=== PATIENT | female | born 1965 | race Caucasian/White ===

== ENCOUNTER 2018-08-19 11:42 | Emergency (ER) | payer OTHER ==
--- OUTSIDE RECORDS SUMMARY | 2018-08-19 11:45 | XMS REPORT | Clinical Summary ---
:1965 Author Organization [facility] Address [address] [place] [address] Care Team Providers Name Role Phone Kinza Andrews MD Primary Care Provider Allergies Active Allergy Reactions Severity Noted Date Comments Cephalexin 01/09/2018 Methocarbamol 01/09/2018 Current Medications Not on file Active Problems Not on file Encounters Date Type Specialty Care Team Description 01/09/2018 Office Visit Neurosurgery Luis Salcido MD Neck pain ( Primary Dx) after 08/18/2017 Social History Tobacco Use Types Packs/Day Years Used Date Current Every Day Smoker Smokeless Tobacco: Current User Alcohol Use Drinks/Week oz/Week Comments Yes Sex Assigned at Date Recorded Not on file Last Filed Vital Signs Vital Sign Reading Time Taken Blood Pressure - - Pulse - - Temperature - - Respiratory Rate - - Oxygen Saturation - - Inhaled Oxygen Concentration - - Weight 81.6 kg (180 lb) 01/09/2018 11:14 AM CDT Height 170.2 cm (5' 7") 01/09/2018 11:14 AM CDT Body Mass Index 28.19 01/09/2018 11:14 AM CDT Plan of Treatment Health Maintenance Due Date Last Done Comments CERVICAL CANCER SCREENING 1988 BREAST CANCER SCREENING 2017 COLON CANCER SCREENING 2017 SHINGRIX VACCINE (#1) 2017 INFLUENZA VACCINE 05/21/2018 Results Not on fileafter 08/18/2017 Insurance Payer Benefit Plan / Group Subscriber ID Type Phone Address [facility] CHOICE/CHOICE + xxxxxxxxx HMO/PPO [phone] [place], [place] [phone]
[2018-08-19 12:55] LABS: Absolute Lymphocytes (CBC) 1.7 K/uL (0.7-4.9); Absolute Monocytes 0.3 K/uL (0.1-1.3); Absolute Neutrophil 3.3 K/uL (1.8-8.0); Basophils % 0.7 % (0-1.3); Eosinophils % 2.9 % (0-4.4); Lymphocytes % 31.1 % (15.3-44.8); MCH 30.6 pg (27.0-35.0); MCV 90.5 fL (80-100); MPV 7.8 fL (7.6-11.3); RBC Red Blood Cell Count 4.86 M/uL (3.86-4.86)
[2018-08-19 13:07] LABS: Albumin 3.9 g/dL (3.4-5.0); Bilirubin Direct 0.1 mg/dL (0-0.2); Bilirubin Total 0.5 mg/dL (0.2-1.0); Potassium 3.9 mmol/L (3.5-5.1); Protein, Total 7.7 g/dL (6.4-8.2)
[2018-08-19 13:43] LABS: Urine Blood 1+ (NEG); Urine Glucose NEGATIVE (NEG); Urine Protein NEGATIVE (NEG); Urine pH 5.5 (5.0-7.0)
[2018-08-19 13:47] LABS: Urine Bacteria <20 /HPF (<20); Urine Culture Reflex Order NOT NEEDED; Urine RBC NONE SEEN /HPF (NONE SEEN)
--- NOTE | 2018-08-19 14:36 | RAD REPORT ---
EXAM DESCRIPTION: CTAbdomen Pelvis W Contrast - 08/19/2018 2:21 pm CLINICAL HISTORY: Abdominal pain. lower abdomen pain COMPARISON: No comparisons TECHNIQUE: Biphasic CT imaging of the abdomen and pelvis was performed with 100 ml non-ionic IV cont rast. All CT scans are performed using dose optimization technique as appropriate and may include automated exposure control or mA/KV adjustment according to patient size. FINDINGS: The lung bases are clear. The liver, spleen, pancreas, adrenal glands and kidneys are within normal limits. No bowel obstruction, free air, free fluid or abscess. The appendix is normal. No evidence of signi ficant lymphadenopathy. No suspicious bony findings. IMPRESSION: No acute intra-abdominal or pelvic finding.
--- NOTE | 2018-08-19 14:59 | ER ---
Nurse's Notes [facility] Name: Xi Beckford Age: 52 yrs Sex: Female : 1965 Arrival Date: 08/19/2018 Time: 11:47 Bed 14 Private MD: Diagnosis: Lower abdominal pain, unspecified;Constipation Presentation: 08/19 11:55 Presenting complaint: Patient states: Reports constipation for 1.5 weeks, denies N/V. jl7 Transition of care: patient was not received from another setting of care. Onset of symptoms was August 09, 2018. Risk Assessment: Do you want to hurt yourself or someone else? Patient reports no desire to harm self or others. Initial Sepsis Screen: Does the patient meet any 2 criteria? No. Patient's initial sepsis screen is negative. Does the patient have a suspected source of infection? No. Patient's initial sepsis screen is negative. Care prior to arrival: None. 11:55 Method Of Arrival: Ambulatory jl7 11:55 Acuity: BASSAM 3 jl7 MDS NURSE: 11:58 LMP N/A - Post-menopause jl7 Historical: - Allergies: 11:58 Keflex; jl7 11:58 Robaxin; jl7 - Home Meds: 11:58 None [Active]; jl7 - PMHx: 11:58 None; jl7 - PSHx: 11:58 foot surgery; jl7 - Immunization history:: Adult Immunizations not up to date. - Social history:: Smoking status: Patient uses tobacco products, smokes one pack cigarettes per day. - Ebola Screening: : No symptoms or risks identified at this time. Screenin:32 Abuse screen: Denies threats or abuse. Nutritional screening: No deficits noted. tw2 Tuberculosis screening: No symptoms or risk factors identified. Fall Risk None identified. Assessment: 12:05 General: Appears in no apparent distress. Behavior is calm, cooperative, appropriate tw2 for age. Pain: Complains of pain in abdomen. Neuro: Level of Consciousness is awake, alert, obeys commands, Oriented to person, place, time, situation. Cardiovascular: Denies chest pain, shortness of breath, Heart tones S1 S2 Patient's skin is warm and dry. Respiratory: Airway is patent Respiratory effort is even, unlabored, Respiratory pattern is regular, symmetrical, Breath sounds are clear bilaterally. GI: Bowel sounds present X 4 quads. Abd is soft X 4 quads Reports lower abdominal pain, upper abdominal pain, constipation. GI: "I feel like my insides are gonna fall out". : No signs and/or symptoms were reported regarding the genitourinary system. EENT: No signs and/or symptoms were reported regarding the EENT system. Derm: No signs and/or symptoms reported regarding the dermatologic system. Musculoskeletal: Range of motion: intact in all extremities. 13:32 Reassessment: Patient appears in no apparent distress at this time. No changes from tw2 previously documented assessment. Patient and/or family updated on plan of care and expected duration. Pain level reassessed. Patient is alert, oriented x 3, equal unlabored respirations, skin warm/dry/pink. 14:30 Reassessment: Patient appears in no apparent distress at this time. No changes from tw2 previously documented assessment. Patient and/or family updated on plan of care and expected duration. Pain level reassessed. Patient is alert, oriented x 3, equal unlabored respirations, skin warm/dry/pink. 15:05 Reassessment: Patient appears in no apparent distress at this time. No changes from tw2 previously documented assessment. Patient and/or family updated on plan of care and expected duration. Pain level reassessed. Patient is alert, oriented x 3, equal unlabored respirations, skin warm/dry/pink. Vital Signs: 11:58 BP 145 / 89; Pulse 79; Resp 16 S; Temp 98.5(O); Pulse Ox 98% on R/A; Weight 86.18 kg 7 (R); Height 5 ft. 6 in. (167.64 cm) (R); Pain 6/10; 13:31 BP 138 / 81; Pulse 59; Resp 17; Pulse Ox 99% on R/A; tw2 14:52 BP 137 / 94; Pulse 69; Resp 17; Pulse Ox 98% on R/A; tw2 11:58 Body Mass Index 30.67 (86.18 kg, 167.64 cm) 7 ED Course: 11:47 Patient arrived in ED. as 11:57 Triage completed. jl7 11:58 Arm band placed on right wrist. 7 12:02 Stephanie Veliz RN is Primary Nurse. tw2 12:03 Bhavik Inman PA is PHCP. cp 12:03 Bhavik Muro MD is Attending Physician. cp 12:05 Placed in gown. Bed in low position. Call light in reach. Pulse ox on. NIBP on. Warm tw2 blanket given. 12:10 Inserted saline lock: 22 gauge in left antecubital area, using aseptic technique. Blood tw2 collected. Missed attempt(s): 20 gauge in right antecubital area. Bleeding controlled, band aid applied, catheter tip intact. 14:13 CT completed. Patient tolerated procedure well. Patient moved to CT via wheelchair. sj Patient moved back from CT. 14:22 CT Abd/Pelvis - W/Contrast: give oral contrast In Process Unspecified. EDMS 14:56 Humberto Stevens MD is Referral Physician. cp 14:56 Served as a disability program navigator during rectal exam. tw2 15:05 IV discontinued, intact, bleeding controlled, No redness/swelling at site. Pressure tw2 dressing applied. Administered Medications: No medications were administered Outcome: 14:58 Discharge ordered by MD. cp 15:04 Discharged to home ambulatory. tw2 15:04 Condition: stable 15:04 Discharge instructions given to patient, Instructed on discharge instructions, follow up and referral plans. medication usage, Demonstrated understanding of instructions, follow-up care, medications, Prescriptions given X 1. 15:05 Patient left the ED. tw2 Signatures: Dispatcher [employer] EDSC Minerva Saldana Amelia as Page, Corey, Stephanie Delatorre cp, RN RN tw2 Anupam Steven RN RN jl7
--- NOTE | 2018-08-19 14:59 | EDPHYS ---
Physician Documentation [facility] Name: Xi Beckford Age: 52 yrs Sex: Female : 1965 Arrival Date: 08/19/2018 Time: 11:47 Bed 14 Private MD: ED Physician Bhavik Muro HPI: 08/19 12:15 This 52 yrs old Female presents to ER via Ambulatory with complaints of cp Abdominal Pain. 12:15 The patient presents with abdominal pain in the lower abdomen. cp 12:15 Onset: The symptoms/episode began/occurred 1.5 week(s) ago. The symptoms do not cp radiate. Associated signs and symptoms: Pertinent positives: constipation, Pertinent negatives: anorexia, blood in stools, diarrhea, dysuria, fever, headache, vaginal discharge. The symptoms are described as waxing/waning. SWE[employer] P[employer]LED [employer]ER: 11:58 LMP N/A - Post-menopause jl7 Historical: - Allergies: 11:58 Keflex; jl7 11:58 Robaxin; jl7 - Home Meds: 11:58 None [Active]; jl7 - PMHx: 11:58 None; jl7 - PSHx: 11:58 foot surgery; jl7 - Immunization history:: Adult Immunizations not up to date. - Social history:: Smoking status: Patient uses tobacco products, smokes one pack cigarettes per day. - Ebola Screening: : No symptoms or risks identified at this time. ROS: 12:20 Constitutional: Negative for body aches, chills, fever, poor PO intake. cp 12:20 Eyes: Negative for injury, pain, redness, and discharge. cp 12:20 ENT: Negative for drainage from ear(s), ear pain, sore throat, difficulty swallowing, difficulty handling secretions. 12:20 Cardiovascular: Negative for chest pain, edema, palpitations. 12:20 Respiratory: Negative for cough, shortness of breath, wheezing. 12:20 Abdomen/GI: Positive for abdominal pain, constipation, of the right lower quadrant and left lower quadrant, Negative for vomiting, diarrhea. 12:20 Back: Negative for injury or acute deformity, pain with movement. 12:20 : Negative for urinary symptoms, vaginal bleeding, vaginal discharge. 12:20 Skin: Negative for cellulitis, rash. 12:20 Neuro: Negative for altered mental status, headache, weakness. 12:20 All other systems are negative. Exam: 12:28 Constitutional: The patient appears in no acute distress, alert, awake, non-toxic, well cp developed, well nourished. 12:28 Head/Face: Normocephalic, atraumatic. cp 12:28 Eyes: Periorbital structures: appear normal, Conjunctiva: normal, no exudate, no injection, Sclera: no appreciated abnormality, Lids and lashes: appear normal, bilaterally. 12:28 ENT: External ear(s): are unremarkable, Nose: is normal, Mouth: Lips: moist, Oral mucosa: pink and intact, moist, Posterior pharynx: is normal, airway is patent, no erythema, no exudate. 12:28 Neck: ROM/movement: is normal, is supple, without pain, no range of motions limitations, no nuchal rigidity. 12:28 Chest/axilla: Inspection: normal, Palpation: is normal, no crepitus, no tenderness. 12:28 Cardiovascular: Rate: normal, Rhythm: regular, Edema: is not appreciated, JVD: is not appreciated. 12:28 Respiratory: the patient does not display signs of respiratory distress, Respirations: normal, no use of accessory muscles, no retractions, no splinting, no tachypnea, labored breathing, is not present, Breath sounds: are clear throughout, no decreased breath sounds, no stridor, no wheezing. 12:28 Abdomen/GI: Inspection: abdomen appears normal, Bowel sounds: active, all quadrants, Palpation: soft, in all quadrants, mild abdominal tenderness, in the right lower quadrant and left lower quadrant, rebound tenderness, is not appreciated, involuntary guarding, is not appreciated. 12:28 Back: CVA tenderness, is absent. 12:28 Skin: cellulitis, is not appreciated, no rash present. 12:28 Neuro: Orientation: to person, place \T\ time. Mentation: lucid, able to follow commands, Cerebellar function: is grossly normal, Motor: moves all fours, strength is normal, Sensation: is normal. Vital Signs: 11:58 BP 145 / 89; Pulse 79; Resp 16 S; Temp 98.5(O); Pulse Ox 98% on R/A; Weight 86.18 kg jl7 (R); Height 5 ft. 6 in. (167.64 cm) (R); Pain 6/10; 13:31 BP 138 / 81; Pulse 59; Resp 17; Pulse Ox 99% on R/A; tw2 14:52 BP 137 / 94; Pulse 69; Resp 17; Pulse Ox 98% on R/A; tw2 11:58 Body Mass Index 30.67 (86.18 kg, 167.64 cm) jl7 MDM: 12:04 Patient medically screened. thania 13:00 Differential diagnosis: appendicitis, bowel obstruction, diverticulitis, non-specific cp abd pain, pancreatitis, Ureterolithiasis, urinary tract infection, constipation, fecal impaction. 14:57 Data reviewed: vital signs, nurses notes, lab test result(s), radiologic studies, CT cp scan. 14:57 Counseling: I had a detailed discussion with the patient and/or guardian regarding: the cp historical points, exam findings, and any diagnostic results supporting the discharge/admit diagnosis, lab results, radiology results, the need for outpatient follow up, a brand ambassador promotional model, to return to the emergency department if symptoms worsen or persist or if there are any questions or concerns that arise at home. Response to treatment: the patient's symptoms have mildly improved after treatment, and as a result, I will discharge patient. Special discussion: Based on the patient's Hx, exam, and Dx evaluation, there is no indication for emergent surgery or inpatient Tx. It is understood by the patient/guardian that if the Sx's persist or worsen they need to return immediately for re-evaluation. 14:57 ED course: VSS. Discussed results of CT abdomen/pelvis that returned negative for acute cp findings. Will discharge to home for continued monitoring and recommend f/u with GI. Can use OTC enema or laxatives. 08/19 12:12 Order name: Basic Metabolic Panel; Complete Time: 13:46 cp 08/19 13:46 Interpretation: Normal except: GFR 76. cp 08/19 12:12 Order name: CBC with Diff; Complete Time: 13:46 cp 08/19 13:46 Interpretation: Reviewed. cp 08/19 12:12 Order name: Creatinine for Radiology; Complete Time: 13:46 cp 08/19 12:12 Order name: Hepatic Function; Complete Time: 13:46 cp 08/19 14:44 Interpretation: Normal except: GLOB 3.8; A/G 1.0. cp 08/19 12:12 Order name: Lipase; Complete Time: 13:46 cp 08/19 12:12 Order name: Urine Microscopic Only; Complete Time: 14:44 cp 08/19 12:12 Order name: IV Saline Lock; Complete Time: 13:22 cp 08/19 12:12 Order name: Labs collected and sent; Complete Time: 13:22 cp 08/19 12:12 Order name: Urine Dipstick-Ancillary (obtain specimen); Complete Time: 12:31 cp 08/19 12:12 Order name: Urine Test (obtain specimen); Complete Time: 12:31 cp 08/19 12:12 Order name: CT Abd/Pelvis - W/Contrast: give oral contrast; Complete Time: 14:44 cp 08/19 13:15 Order name: Urine Dipstick--Ancillary (enter results); Complete Time: 13:46 bd 08/19 13:15 Order name: Urine --Ancillary (enter results); Complete Time: 13:46 bd Administered Medications: No medications were administered Disposition: 08/19/18 14:58 Discharged to Home. Impression: Lower abdominal pain, unspecified, Constipation. - Condition is Stable. - Discharge Instructions: Abdominal Pain, Adult, Constipation, Adult. - Prescriptions for Miralax 17 gram/dose Oral - take 1 packet by ORAL route once daily for 15 days dilute powder in 8 ounces of water or juice; 15 packet. - Medication Reconciliation Form, Thank You Letter, Antibiotic Education, Prescription Opioid Use, Work release form form. - Follow up: Humberto Stevens MD; When: 2 - 3 days; Reason: Recheck today's complaints. - Problem is new. - Symptoms are unchanged. Signatures: Dispatcher [employer] EDLA Bhavik Muro MD MD cha Page, Corey, PA PA cp Stephanie Veliz, RN RN tw2 Anupam Steven RN RN jl7 Corrections: (The following items were deleted from the chart) 15:05 14:58 08/19/2018 14:58 Discharged to Home. Impression: Lower abdominal pain, tw2 unspecified; Constipation. Condition is Stable. Forms are Work release form, Medication Reconciliation Form, Thank You Letter, Antibiotic Education, Prescription Opioid Use. Follow up: Humberto Stevens; When: 2 - 3 days; Reason: Recheck today's complaints. Problem is new. Symptoms are unchanged. cp
[2018-08-19 15:10] VITALS: TEMP 98.5
[2018-08-19 15:12] VITALS: BP 137/94; O2SAT 98
== END 2018-08-19 15:05 | disposition home or self-care (01) ==
LOC: ER 11:42
DX: K59.00 Constipation, unspecified (principal); F17.210 Nicotine dependence, cigarettes, uncomplicated; Z88.1 Allergy status to other antibiotic agents; Z88.8 Allergy status to other drugs, medicaments and biological substances
CPT/HCPCS: 36415; 74177; 80048; 80076; 81003; 81015; 81025; 83690; 85025; 99284; Q9967

== ENCOUNTER 2022-04-06 08:39 | Emergency (ER) | payer OTHER, SELFPAY ==
--- OUTSIDE RECORDS SUMMARY | 2022-04-06 08:44 | XMS REPORT | Continuity of Care Document ---
:1965 Author Organization [facility] t Address [address] [place] [address] Care Team Providers Name Role Phone Pcp, Does Not Have A Primary Care Physician Delroy HUNTER Attending Clinician Joellen HUNTER Attending Clinician Singer ALCANTAR Attending Clinician PLACIDO Attending Clinician Unavailable Joellen HUNTER Admitting Clinician Problems Condition Condition Condition Status Onset Resolution Last Treating Co mments Source Name Details Category Date Date Treatment Clinician Date Obesity Obesity Disease Active Univers (BMI (BMI 9-15 ity of 30-39.9) 30-39.9) 00:00: [address] Other Other Disease Active Univers hyperlipid hyperlipid 15 it y of emia emia 00:: [address] Cigarette Cigarette Disease Active Uni vers smoker smoker 15 ity of 00:: [address] Family Family Disease Active Univers history of history of 9-15 [place] CAD [place] [facility] Chest pain Chest pain Disease Active U nivers -14 ity of 00:: [address] Allergies, Adverse Reactions, Alerts Allergy Allergy Status Severity Reaction(s) Onset Inactive Treating Comm ents Source Name Type Date Date Clinician CEPHALEX DRUG Active ITCHING Univers IN INGREDI -14 ity of 00:: [place] 00 Medical Branch METHOCAR DRUG Active ITCHING Univers BAMOL INGREDI 4-14 ity of 00:00: [place] 00 Medical Branch Cephalex Propensi Active Itching Unive rs in ty to 4-14 ity of adverse 00:00: [place] reaction 00 Medical s Branch Methocar Propensi Active Itching Unive rs bamol ty to 4-14 ity of adverse 00:00: [place] reaction 00 Medical s [place] Social History Social Habit Start Date Stop Date Quantity Comments Source Exposure to Not sure [facility] SARS-CoV-2 [facility] (event) [place] Alcohol intake 2021-07-04 2021-07-04 Current drinker Unive rsity of 00:00:00 00:00:00 of alcohol [facility] (finding) [place] Tobacco use and 2020-06-13 2020-06-13 Never used Universit y of exposure 00:00:00 00:00:00 [facility] Sex Ass[birth year] At [birth year] Universit y of 00:00:00 00:00:00 [facility] Smoking Status Start Date Stop Date Source Current every day smoker 2020-06-13 00:00:00 Uni versity of [facility] Medications Ordered Filled Start Stop Current Ordering Indication Dosage Frequency Signature Comments Components Source Medication Medication Date Date Medication? Clinician (SIG) Name Name pantoprazol Yes 40mg 40 mg, Univ ers e 9-16 Oral, ity of (PROTONIX) 14:00: DAILY, [place] EC tablet 00 First dose Medi chris 40 mg on Varsha [place] 07/06/21 at 0900, Until Discontinu ed, Routine atorvastati Yes 40mg 40 mg, Univ ers n (LIPITOR) 9-16 Oral, QHS, it y of tablet 40 02:00: [place] 00 on Wed Medical 07/05/21 at Branch 2100, Until Discontinu ed, Routine pantoprazol Yes [id number] 40mg Take 1 Univers e 40 mg EC 9-16 tablet by ity of tablet 00:00: mouth [place] 00 daily. Medical Branch aspirin 81 Yes [id number] 81mg Take 1 U nivers mg chewable 9-16 tablet by ity of tablet 00:00: mouth [place] 00 daily. Medical Branch aspirin Yes 81mg 81 mg, Univers chewable 9-15 Oral, ity of tablet 81 14:00: DAILY, [place] mg 00 First dose Medical on Sat Branch 07/05/21 at 0900, Until Discontinu ed, Routine levoFLOXaci No 750mg 750 mg, U nivers n 07-0518 Oral, ity of (LEVAQUIN) 14:00: 13:59 DAILY, 3 [place] tablet 750 00 :00 doses, Medical mg First dose Branch on Sat07/05/21 at 0900, Last dose on Sat07/07/21 at 0900, JUANCARLOS
Re ason for Anti-Infec tive: Documented Infection< br>Documen sadia Infection Site: Respirator y
Durat ion of Therapy: 7 days nicotine Yes 1{patch 1 Patch, Un benito (NICODERM) 07-05 } Topical, ity o f 21 mg/24 hr 13:00: Administer [place] patch 1 00 over 24 Medical Patch Hours, Branch Q24H, First dose on Sat07/05/21 at 0800, Until Discontinu ed, Routine predniSONE No 20mg 20 mg, Univ ers (DELTASONE) 07-05 Oral, ity of tablet 20 02:00: 13:38 DAILY, 3 Kishore as mg 00 :33 doses, Medical First dose Branch on Sat07/04/21 at 2100, Last dose on Sat07/06/21 at 0900, Routine ondansetron Yes 4mg 4 mg, Slow Univers (ZOFRAN 07-05 IV Push, ity of (PF)) 01:50: Q6HPRN, [place] injection 4 09 Starting Medi chris mg on Sat Branch 07/04/21 at 2049, Until Discontinu ed, Routine, Nausea and Vomiting (N/V) morpHINE 2020- No 4mg 4 mg, Slow Un benito injection 4 07-0516 IV Push, ity of mg 01:50: 01:49 Q4HPRN, [place] 06 :06 Starting Medical on Sat Branch 07/04/21 at 2049, Until Sat07/05/21 at 2048, Routine, Pain (scale 7-10) HYDROcodone 2021-0 2021- No 1{tbl} 1 tablet, Univers -acetaminop 07-05 Oral, ity of hen (NORCO 01:50: 01:49 Q6HPRN, [place] as 5) 5-325 mg 04 :04 Starting Medi chris tablet 1 on [facility] tablet 07/04/21 at 2049, Until Varsha 07/06/21 at 2048, Routine, Pain (scale 4-6) acetaminoph 2020-0 Yes 650mg 650 mg, Un benito en 07-05 Oral, ity of (TYLENOL) 01:49: Q6HPRN, [place] tablet 650 50 Starting Medic al mg on [facility] Branch 07/04/21 at 2048, Until Discontinu ed, Routine, Pain (scale 1-3), Temp > 38.5 C dextrometho 2020-0 Yes 10mL 10 mL, [facility] ers rphan-guaif 07-05 Oral, ity of enesin 01:48: Q6HPRN, [place] (ROBITUSSIN 17 Starting Medi chris DM) 10-100 on [facility] mg/5 mL 07/04/21 at solution 10 2047, mL Until Discontinu ed, Routine, Cough ipratropium 2020-0 Yes 3mL 3 mL, [facility] rs -albuteroL 07-05 Inhalation ity of (DUONEB) 01:47: , Q6HPRN, [place] 0.5 mg-3 06 Starting Medical mg(2.5 mg on [facility] base)/3 mL 07/04/21 at nebulizer 2046, solution 3 Until mL Discontinu ed, Routine, Wheezing, Shortness of Breath levoFLOXaci 2020-0 Yes [id number] 750mg Take 1 Univers n 750 mg 9-15 tablet by ity of tablet 00:00: mouth [place] 00 every 24 Medical (- Branch ur) hours. atorvastati 0 Yes [id number] 40mg Take 1 Univers n 40 mg 9-15 tablet by ity of tablet 00:00: mouth at [place] 00 bedtime. Medical Branch diphenhydrA 0 202- No [id number] 25mg 25 mg, Univers MINE 06-30 09-10 Slow IV ity of (BENADRYL) 17:30: 16:58 Push, [place] injection 00 :00 ONCE, 1 Medical 25 mg dose, Fri Branch 06/30/21 at 1230, STAT metoclopram 2020- No [id number] 10mg 10 mg, Univers tripp HCl 06-30 Slow IV ity of (REGLAN) 17:30: 16:58 Push, [place] injection 00 :00 ONCE, 1 Medical 10 mg dose, Fri Branch 06/30/21 at 1230, JUANCARLOS levoFLOXaci Yes [id number] 750mg Take 1 Univers n 750 mg 9-10 tablet by ity of tablet 00:00: mouth [place] 00 every 24 Medical (twenty-fo Branch ur) hours. albuterol Yes [id number] 2{puff} Inhale 2 Univers 90 9-10 Puffs ity of mcg/actuati 00:00: every 4 [place] as on inhaler 00 (four) Medical hours as Branch needed for Wheezing or Shortness of Breath. methylPREDN Yes [id number] Take by Univers ISolone 06-30 mouth ity of (MEDROL, 00:00: SEE-INSTRU [place] as TAMMY,) 4 mg 00 CTIONS. Medica l tablets follow Branch package directions albuterol Yes [id number] 2{puff} Inhale 2 Univers 90 9-10 Puffs ity of mcg/actuati 00:00: every 4 [place] as on inhaler 00 (four) Medical hours as Branch needed for Wheezing or Shortness of Breath. levoFLOXaci 2020- No [id number] 750mg Take 1 Univers n 750 mg 06-30 tablet by ity o f tablet 00:00: 00:00 mouth [place] 00 :00 every 24 Medical (twenty-fo Branch ur) hours. methylPREDN 0 2020- No [id number] Take by Univers ISolone 06-30-15 mouth ity of (MEDROL, 00:00: 00:00 [place]INSTRU [place] TAMMY,) 4 mg 00 :00 CTIONS. Medica l tablets follow Branch package directions acetaminoph Yes [id number] 1{tbl} Take 1 Un benito en-codeine 8-24 tablet by ity of 300-30 mg 00:00: mouth [place] tablet 00 every 4 Medical (four) Branch hours as needed for Pain (scale 4-6). Indication s: acute pain naproxen 2020-0 Yes [id number] 500mg Take 1 U nivers (NAPROSYN) 8-24 tablet by ity of 500 mg 00:00: mouth 2 [place] tablet 00 (two) Medical times Branch daily with meals. sulfamethox 2020-0 Yes [id number] 1{tbl} Take 1 Univers azole-trime 8-24 tablet by ity of thoprim 00:00: mouth [place] 800-160 mg 00 every 12 Medic al per tablet (twelve) Branc h hours. acetaminoph 2020-0 Yes [id number] 1{tbl} Take 1 Un benito en-codeine 8-24 tablet by ity of 300-30 mg 00:00: mouth [place] tablet 00 every 4 Medical (four) Branch hours as needed for Pain (scale 4-6). Indication s: acute pain naproxen 2019-0 2020- No [id number] 500mg Take 1 Univers (NAPROSYN) 8-24 09-15 tablet by ity of 500 mg 00:00: 00:00 mouth 2 [place] tablet 00 :00 (two) Medical times Branch daily with meals. sulfamethox 2020-0 2020- No [id number] 1{tbl} Take 1 Univers azole-trime 8-24 09-15 tablet by it y of thoprim 00:00: 00:00 mouth [place] 800-160 mg 00 :00 every 12 Medic al per tablet (twelve) Branc h hours. cyclobenzap 2016-0 Yes 10mg Take 1 Univ ers rine 5-16 tablet by ity of (FLEXERIL) 00:00: [place] 10 mg 00 (three) Medical tablet times Branch daily as needed for Muscle Spasms (pain). cyclobenzap 2016-0 Yes 10mg Take 1 Univ ers rine 5-16 tablet by ity of (FLEXERIL) 00:00: mouth [place] 10 mg 00 (three) Medical tablet times Branch daily as needed for Muscle Spasms (pain). Vital Signs Vital Name Observation Time Observation Value Comments Source Systolic blood 2021-07-05 20:29:00 156 mm[Hg] Univer sity of pressure [facility] Diastolic blood 2021-07-05 20:29:00 97 [facility]Hg[facility] 2021-07-05 20:29:00 93 /min Universi ty [facility] [place] [facility] [place] Body temperature 2021-07-05 20:29:00 37.11 Akila [facility] [place] [facility] [place] [facility] [place] Respiratory rate 2021-07-05 20:29:00 18 /min [facility] Oxygen saturation in 2021-07-05 20:29:00 94 /min University of Arterial blood by [facility] Pulse oximetry Branch Body weight 2021-07-05 07:53:00 87.136 kg Universi ty [facility] [place] [facility] [place] BMI 2021-07-05 07:53:00 30.09 kg/m2 Universi ty [facility] Systolic blood 2021-06-30 17:00:00 151 mm[Hg] Univer sit of [facility] Diastolic blood 2021-06-30 17:00:00 87 mm[Hg] [facility] Heart rate 2021-06-30 17:00:00 73 /min Universi [facility] [place] Oxygen saturation in 2021-06-30 17:00:00 97 /min University of Arterial blood by [facility] Pulse oximetry Branch Respiratory rate 2021-06-30 15:58:00 18 /min [facility] Body temperature 2021-06-30 14:25:00 36.56 Akila [facility] Body weight 2021-06-30 14:25:00 88.451 kg Universi [facility] BMI 2021-06-30 14:25:00 30.54 kg/m2 [facility] Procedures Procedure Date / Time Performing Clinician Source Performed TROPONIN I 2021-07-05 11:22:00 Billy Cuenca [facility] TROPONIN I 2021-07-05 08:05:00 Billy [facility] LIPID PANEL ([id number])(TOTAL 2021-07-05 08:05:00 [facility], Medical Branch TRIGLYCERIDES, HDL) XR CHEST 1 VW 2021-07-05 00:32:04 Gerardo Potts [facility] [place] COVID-19 (ID NOW RAPID 2021-07-05 00:32:00 Gerardo Potts [facility] TESTING) Medical [place] LAB ONLY COVID 2021-07-05 00:32:00 Delroy [facility] INTERPRETATION Medical Branch LIPASE 2021-07-05 00:03:00 [facility] 2021-07-05 00:03:00 [facility] 2021-07-05 00:03[facility] Branch COMP. METABOLIC PANEL 2021-07-05 00:03:00 Gerardo Potts [facility] ([id number]) [facility] CBC WITH DIFF 2021-07-05 00:03:00 Delroy [facility] GLYCOSYLATED HEMOGLOBIN 2021-07-05 00:03:00 [facility] PROTHROMBIN TIME / INR 2021-07-05 00:03:00 Gerardo Potts [facility] ACTIVATED PARTIAL 2021-07-05 00:03:00 Delroy [facility] THRMPLAS ADDIE [facility] HB ECG ROUTINE & RHYTHM 2021-07-05 00:00:45 Gerardo Potts [facility] STRIP [facility] Branch NOTICE OF PRIVACY 2021-07-04 23:42:08 Doctor Unassigned, [facility] [place] [facility] XR CHEST 1 VW 2021-06-30 15:55:24 Singer [facility] COMP. METABOLIC PANEL 2021-06-30 15:51:00 Carlos Yanez [facility] ([id number]) [facility] CBC WITH DIFF 2021-06-30 15:51:00 Carlos Yanez [facility] URINALYSIS 2021-06-30 15:51:00 Singer [facility] EBV-MONONUCLEOSIS SCREEN 2021-06-30 15:51:00 Carlos Yanez [facility] COVID-19 (ID NOW RAPID 2021-06-30 14:39:00 [facility] Medical Branch NOTICE OF PRIVACY 2021-06-30 14:19:25 Doctor Unassigned, [facility] PRACTICES [place] Medical Branch CONSENT/REFUSAL FOR 2021-06-30 14:16:14 Doctor Unassigned, [facility] DIAGNOSIS AND TREATMENT [place] [facility] Encounters Start End Encounter Admission Attending Care Care Encounter Source Date/Time Date/Time Type Type Clinicians Facility Department ID 2021-08-21 Emergency [facility] [id number] Univers 22:38:11 ity of [facility] 2021-08-21 Emergency [facility] [id number] Univers 21:44:15 ity of [facility] 2021-08-18 Emergency [facility] [id number] Univers 14:12:23 ity of [facility] 2021-07-04 2021-07-05 [facility] Gerardo Potts [facility] [id number] Univers 18:59:00 16:39:00 Encounter Billy Cuenca [id number] ity of [place] [id number] [facility] [id number] [address] 2021-06-30 2021-06-30 [facility] [id number] Univers 09:26:00 12:20:00 Carlos Martin [id number] i ty of [place] [id number] [facility] [id number] [address] 2020-11-18 2020-11-18 Outpatient R [facility] [id number] Univers 13:00:00 13:00:00 [id number] jorge [facility] 2020-11-18 2020-11-18 [facility] [id number] Univers 13:00:00 13:00:00 TONY patel [facility] 2020-06-13 2020-06-13 [facility] [id number] Univers 13:20:00 13:20:00 TONY patel [facility] Results Test Description Test Time Test Comments Results Result Comments Source Troponin I 2021-07-05 13:23:43 Test Item Value Reference Range Interpretation Comme nts TROPONIN I (test code = 0.004 ng/mL See_Comment [Au tomated message] The [id number]) system which ge nerated this result tra nsmitted reference range : <=0.034. The reference r kathy was not used to int erpret this result as normal/abnormal . FREDIS (test code = FREDIS) Reference (Normal) Range (defined by the 99th percentile reference limit): <= 0.034 ng/mL Note: Cardiac troponin begins to rise 3-4 hours after the onset of ischemia. Repeat in 4-6 hours if the sample was drawn within 3-4 hours of the onset of the symptom and found normal. Diagnosis of myocardial injury is made with acute changes in cTn concentrations with at least one serial sample above the 99th percentile upper reference limit (URL), taken together with the patient's clinical presentation. Biotin has been reported to cause a negative bias, interpret results relative to patient's use of biotin. Lab Interpretation Normal (test code = 73045-0) [facility] [id number] 09:23:24 Test Item Value Reference Interpretation Comments Range TROPONIN I (test 0.002 ng/mL See_Comment [Automated code = 9205072123) message] The system which generated this result transmitted reference range : <=0.034. The reference range was not used to interpret this result as normal/abnormal . FREDIS (test code = Reference (Normal) FREDIS) Range (defined by the 99th percentile reference limit): <= 0.034 ng/mL Note: Cardiac troponin begins to rise 3-4 hours after the onset of ischemia. Repeat in 4-6 hours if the sample was drawn within 3-4 hours of the onset of the symptom and found normal. Diagnosis of myocardial injury is made with acute changes in cTn concentrations with at least one serial sample above the 99th percentile upper reference limit (URL), taken together with the patient's clinical presentation. Biotin has been reported to cause a negative bias, interpret results relative to patient's use of biotin. Lab Interpretation Normal (test code = 02158-5) [facility] (Total Cholesterol, Triglycerides, HDL)2021-07-05 09:12:06 Test Item Value Reference Range Interpretation Comments CHOL (test code = 263 mg/dL 120-200 H [id number]) HDL (test code = 43 mg/dL >50 L 4406908022) HDLC RATIO (test code = See_Comment H [Au tomated message] [id number]) The system [employer] generated this result transmit sadia reference range : <=4.5. The refe rence range was not u sed to interpret th is result as normal/abnormal . TRIG (test code = 81 mg/dL 30-170 3468865318) LDL CHOL (test code = 204 mg/dL See_Comment H [Auto mated message] 37925-6) The system [employer] generated this result transmit sadia reference range : <=160. The refe rence range was not u sed to interpret th is result as normal/abnormal . VLDL (test code = 16 mg/dL 5-60 9555988426) Lab Interpretation (test Abnormal code = 82592-1) [facility]en[facility]yroid Stimulating Hormone (TSH)2021-07-05 03:17:09 Test Item Value Reference Range Interpretation Comments TSH (test code = See_Comment [Automated message] [id number]) The system [employer] generated this result transmitted ref erence range: 0.45 - 4 .70 mIU/L. The refe rence range was not u sed to interpret this result as normal/abnor mal. Lab Interpretation (test Normal code = 65816-7) [facility]cosylated Hemoglobin (A1C)2021-07-05 02:22:55 Test Item Value Reference Range Interpretation Comments HGB A1C (test code = 5.2 % 4.0-5.7 4548-4) FREDIS (test code = FREDIS) Reference RangesNormal: <5.7%Prediabetes: 5.7 - 6.4%Diabetes: > 6.5% Lab Interpretation (test Normal code = 79943-0) [facility]enTROP[facility] [id number] 00:58:35 Test Item Value Reference Interpretation Comments Range TROPONIN I (test 0.003 ng/mL See_Comment [Automated code = 8576980234) message] The system which generated this result transmitted reference range : <=0.034. The reference range was not used to interpret this result as normal/abnormal . FREDIS (test code = Reference (Normal) FREDIS) Range (defined by the 99th percentile reference limit): <= 0.034 ng/mL Note: Cardiac troponin begins to rise 3-4 hours after the onset of ischemia. Repeat in 4-6 hours if the sample was drawn within 3-4 hours of the onset of the symptom and found normal. Diagnosis of myocardial injury is made with acute changes in cTn concentrations with at least one serial sample above the 99th percentile upper reference limit (URL), taken together with the patient's clinical presentation. Biotin has been reported to cause a negative bias, interpret results relative to patient's use of biotin. Lab Interpretation Normal (test code = 51650-1) [facility]. METABOLIC PANEL ([id number])2021-07-05 00:48:33 Test Item Value Reference Range Interpretation Comments NA (test code = 138 mmol/L 135-145 4682601187) K (test code = 4.1 mmol/L 3.5-5.0 4398519423) CL (test code = 103 mmol/L 98-108 2466525104) CO2 TOTAL (test code = 27 mmol/L 23-31 0482981787) AGAP (test code = 2-16 6501658747) BUN (test code = 22 mg/dL 7-23 0664655419) GLUCOSE (test code = 118 mg/dL 70-110 H 0313160700) CREATININE (test code = 0.84 mg/dL 0.50-1.04 4186479531) TOTAL BILI (test code = 0.4 mg/dL 0.1-1.9 5326135089) CALCIUM (test code = 10.0 mg/dL 8.6-10.6 6871823868) T PROTEIN (test code = 7.7 g/dL 6.3-8.2 0639218542) ALBUMIN (test code = 4.5 g/dL 3.5-5.0 4496459284) ALK PHOS (test code = 53 U/L 34-122 4413612501) ALTv (test code = 22 U/L 5-35 1742-6) AST(SGOT) (test code = 23 U/L 13-40 7161579248) eGFR (test code = mL/min/1.73m2 3343963830) FREDIS (test code = FREDIS) Association of Glomerular Filtration Rate (GFR) and Staging of Kidney Disease* + --+ --+ ------+| GFR (mL/min/1.73 m2) ?| With Kidney Damage ?| ?Without Kidney Damage+ --------+ --------+ +| ?>90 ?| ?Stage one ?| ? Normal ?+ ---+ ---+ -------+| ?60-89 ?| ?Stage two ?| ? Decreased GFR ? + --+ --+ ------+| ?30-59 ?| ?Stage three ?| ? Stage three ? + --+ --+ ------+| ?15-29 ?| ?Stage four ? | ? Stage four ?+ ---+ ---+ -------+| ?<15 (or dialysis) ? ?| ?Stage five ? | ? Stage five ?+ ---+ ---+ -------+ *Each stage assumes the associated GFR level has been in effect for at least three months. ?Stages 1 to 5, with or without kidney disease, indicate chronic kidney disease. Notes: Determination of stages one and two (with eGFR >59mL/min/1.73 m2) requires estimation of kidney damage for at least three months as defined by structural or functional abnormalities of the kidney, manifested by either:Pathological abnormalities or Markers of kidney damage (including abnormalities in the composition of the blood or urine or abnormalities in imaging tests). Lab Interpretation Abnormal (test code = 81470-5) [facility]enLIP[facility], [id number] 00:47:58 Test Item Value Reference Range Interpretation Comments LIPASE (test code = 9148876417) 66 U/L 0-220 Lab Interpretation (test code = Normal 77560-4) [facility]enaPTT2021-09-15 00:30:12 Test Item Value Reference Range Interpretation Comments APTT Patient (test See_Comment [Automat ed code = 3173-2) message] The system which generated this result transmitted reference range : 23 - 38 Seconds . The reference range was not used to interpr et this result as normal/abnormal . FREDIS (test code = FREDIS) The [facility] patient population mean normal value for aPTT is 30 seconds. Lab Interpretation Normal (test code = 12219-0) [facility]enPROTHROMBIN TIME / [id number] 00:28:16 Test Item Value Reference Range Interpretation Comments PROTIME PATIENT (test See_Comment [Auto mated message] code = 5964-2) The system wh ich generated this result transmitted ref erence range: 12.0 - 1 4.7 Seconds. The re ference range was not u sed to interpret this result as normal/abnor mal. INR (test code = 6301-6) Nor mal INR <1.1; Warfarin Therap eutic range 2.0 to 3. 0 or 2.5 to 3.5, dep ending upon the indica tions. Lab Interpretation (test Normal code = 61734-1) [facility] WITH [id number] 00:26:15 Test Item Value Reference Range Interpretation Comments WBC (test code = See_Comment [Automated 3890-2) message] The sy stem which generated this result transmitted reference range : 4.30 - 11.10 10*3/?L. The reference range was not used to interpret this result as normal/abnormal . RBC (test code = See_Comment [Automated 789-8) message] The sy stem which generated this result transmitted reference range : 3.93 - 5.25 10*6/?L. The reference range was not used to interpret this result as normal/abnormal . HGB (test code = 13.4 g/dL 11.6-15.0 718-7) HCT (test code = 40.6 % 35.7-45.2 4544-3) MCV (test code = 92.9 fL 80.6-95.5 787-2) MCH (test code = 30.7 pg 25.9-32.8 785-6) MCHC (test code = 33.0 g/dL 31.6-35.1 786-4) RDW-SD (test code = 41.6 fL 39.0-49.9 91705-0) RDW-CV (test code = 12.1 % 12.0-15.5 788-0) PLT (test code = See_Comment [Automated 777-3) message] The sy stem which generated this result transmitted reference range : 166 - 358 10*3/ ?L. The reference r kathy was not used to interpret this result as normal/abnormal . MPV (test code = 9.2 fL 9.5-12.9 L 16277-8) NRBC/100 WBC (test See_Comment [Automat ed code = 1199899841) message] The system which generated this result transmitted reference range : 0.0 - 10.0 /100 WBCs. The refer ence range was not u sed to interpret th is result as normal/abnormal . NRBC x10^3 (test code <0.01 See_Comment [Auto mated = 2406533067) message] The s ystem which generated this result transmitted reference range : 10*3/?L. The reference range was not used to interpret this result as normal/abnormal . GRAN MAT (NEUT) % 64.5 % (test code = 770-8) IMM GRAN % (test code 0.50 % = 3028689408) LYMPH % (test code = 25.9 % 736-9) MONO % (test code = 6.8 % 5905-5) EOS % (test code = 1.5 % 713-8) BASO % (test code = 0.8 % 706-2) GRAN MAT x10^3(ANC) 4.99 10*3/uL 1.88-7.09 (test code = 4035062155) IMM GRAN x10^3 (test 0.04 10*3/uL 0.00-0.06 code = 7354828995) LYMPH x10^3 (test code 2.01 10*3/uL 1.32-3.29 = 731-0) MONO x10^3 (test code 0.53 10*3/uL 0.33-0.92 = 742-7) EOS x10^3 (test code = 0.12 10*3/uL 0.03-0.39 711-2) BASO x10^3 (test code 0.06 10*3/uL 0.01-0.07 = 704-7) Lab Interpretation Abnormal (test code = 11032-5) [facility] [id number] 16:54:38 Test Item Value Reference Range Interpretation Comments EBV Mononucleosis Screen (test code Negative Negative = 4092746928) Lab Interpretation (test code = Normal 41364-0) [facility]OLIC PANEL ([id number])2021-06-30 16:16:44 Test Item Value Reference Range Interpretation Comments NA (test code = 140 mmol/L 135-145 9064011365) K (test code = 4.0 mmol/L 3.5-5.0 7913637791) CL (test code = 103 mmol/L 98-108 9420982484) CO2 TOTAL (test code = 28 mmol/L 23-31 6187405108) AGAP (test code = 2-16 8130876669) BUN (test code = 20 mg/dL 7-23 8867783994) GLUCOSE (test code = 99 mg/dL 70-110 4549993032) CREATININE (test code = 0.77 mg/dL 0.50-1.04 0047637032) TOTAL BILI (test code = 0.6 mg/dL 0.1-1.9 1169183135) CALCIUM (test code = 10.1 mg/dL 8.6-10.6 1689967439) T PROTEIN (test code = 8.7 g/dL 6.3-8.2 H 3826886448) ALBUMIN (test code = 5.1 g/dL 3.5-5.0 H 1347207011) ALK PHOS (test code = 71 U/L 34-122 0820324692) ALTv (test code = 18 U/L 5-35 1742-6) AST(SGOT) (test code = 24 U/L 13-40 4451295795) eGFR (test code = mL/min/1.73m2 0668851866) FREDIS (test code = FREDIS) Association of Glomerular Filtration Rate (GFR) and Staging of Kidney Disease* + --+ --+ ------+| GFR (mL/min/1.73 m2) ?| With Kidney Damage ?| ?Without Kidney Damage+ --------+ --------+ +| ?>90 ?| ?Stage one ?| ? Normal ?+ ---+ ---+ -------+| ?60-89 ?| ?Stage two ?| ? Decreased GFR ? + --+ --+ ------+| ?30-59 ?| ?Stage three ?| ? Stage three ? + --+ --+ ------+| ?15-29 ?| ?Stage four ? | ? Stage four ?+ ---+ ---+ -------+| ?<15 (or dialysis) ? ?| ?Stage five ? | ? Stage five ?+ ---+ ---+ -------+ *Each stage assumes the associated GFR level has been in effect for at least three months. ?Stages 1 to 5, with or without kidney disease, indicate chronic kidney disease. Notes: Determination of stages one and two (with eGFR >59mL/min/1.73 m2) requires estimation of kidney damage for at least three months as defined by structural or functional abnormalities of the kidney, manifested by either:Pathological abnormalities or Markers of kidney damage (including abnormalities in the composition of the blood or urine or abnormalities in imaging tests). Lab Interpretation Abnormal (test code = 16263-3) [facility] 16:10:28 Test Item Value Reference Range Interpretation Comments APPEARANCE (test code = Hazy Clear A 6146561751) COLOR (test code = Yellow Yellow 5428193863) PH (test code = 4.8-8.0 8708001638) SP GRAVITY (test code = 1.003-1.030 1901307849) GLU U QUAL (test code = Normal Normal 0216061623) BLOOD (test code = 2+ Negative A 4901866273) KETONES (test code = Negative Negative 0145420289) PROTEIN (test code = Negative Negative 2887-8) UROBILIN (test code = Normal Normal 7582246373) BILIRUBIN (test code = Negative Negative 6771579329) NITRITE (test code = Negative Negative 5362194500) LEUK JUANI (test code = Negative Negative 7917992296) RBC/HPF (test code = See_Comment H [Autom ated message] 4417784455) The system [employer] generated this result transmitted ref erence range: 0 - 3 HP F. The reference range was not used to int erpret this result as normal/abnormal . WBC/HPF (test code = See_Comment [Autom ated message] 3939451297) The system [employer] generated this result transmitted ref erence range: 0 - 5 HP F. The reference range was not used to int erpret this result as normal/abnormal . BACTERIA (test code = Few Negative A 7991345033) MUCOUS (test code = Slight Negative LPF A 6139039601) SQ EPITH (test code = HPF 6521210377) Lab Interpretation (test Abnormal code = 56064-2) [facility] 1 [id number] 16:08:03 No focal consolidation. Bibasilar opacities may represent atelectasis orinfection with viral/atypical organisms. Preliminary Report Dictated by Resident: Louis Crespo MD., have reviewed this study and agree with theabove report.EXAM: XR CHEST 1 VW HISTORY: 55 years-old Female; shortness of breath . "Body aches andheadache for 6 days" TECHNIQUE: Single frontal view of the chest. COMPARISON: Chest radiographs dated 08/21/2017. FINDINGS: The lung apices are not fully imaged. The lungs are moderately well expanded. Trace opacities are seen in thebases. No focal consolidation or pleural abnormality is visualized. ? The cardiomediastinal silhouette is normal accounting for technique. No acute osseous abnormality is present. [facility], Radiant Results Inft User - 06/30/2021 11:09 AM CDT EXAM: XR CHEST 1 VWHISTORY: 55 years-old Female; shortness of breath . "Body aches andheadache for 6 days"TECHNIQUE: Single frontal view of the chest.COMPARISON: Chest radiographs dated 08/21/2017.FINDINGS:The lung apices are not fully im aged.The lungs are moderately well expanded. Trace opacities are seen in thebases. No focal consolidation or pleural abnormality is visualized. The cardiomediastinal silhouette is normal accounting for technique.No acute osseous abnormality is present. IMPRESSIONNo focal consolidation. Bibasilar opacities may represent atelectasis orinfection with viral/atypical organisms. Preliminary Report Dictated by Resident: Louis Reinoso MD., have reviewed this study and agree with theabove report.[facility] WITH [id number] 16:03:25 Test Item Value Reference Range Interpretation Comments WBC (test code = See_Comment [Automated 5290-2) message] The sy stem which generated this result transmitted reference range : 4.30 - 11.10 10*3/?L. The reference range was not used to interpret this result as normal/abnormal . RBC (test code = See_Comment [Automated 339-8) message] The sy stem which generated this result transmitted reference range : 3.93 - 5.25 10*6/?L. The reference range was not used to interpret this result as normal/abnormal . HGB (test code = 15.3 g/dL 11.6-15.0 H 718-7) HCT (test code = 46.9 % 35.7-45.2 H 4544-3) MCV (test code = 94.7 fL 80.6-95.5 787-2) MCH (test code = 30.9 pg 25.9-32.8 785-6) MCHC (test code = 32.6 g/dL 31.6-35.1 786-4) RDW-SD (test code = 42.2 fL 39.0-49.9 17762-8) RDW-CV (test code = 12.1 % 12.0-15.5 788-0) PLT (test code = See_Comment [Automated 777-3) message] The sy stem which generated this result transmitted reference range : 166 - 358 10*3/ ?L. The reference r kathy was not used to interpret this result as normal/abnormal . MPV (test code = 8.9 fL 9.5-12.9 L 32883-5) NRBC/100 WBC (test See_Comment [Automat ed code = 0116681955) message] The system which generated this result transmitted reference range : 0.0 - 10.0 /100 WBCs. The refer ence range was not u sed to interpret th is result as normal/abnormal . NRBC x10^3 (test code <0.01 See_Comment [Auto mated = 4985071985) message] The s ystem which generated this result transmitted reference range : 10*3/?L. The reference range was not used to interpret this result as normal/abnormal . GRAN MAT (NEUT) % 67.5 % (test code = 770-8) IMM GRAN % (test code 0.30 % = 8672654716) LYMPH % (test code = 23.9 % 736-9) MONO % (test code = 6.4 % 5905-5) EOS % (test code = 1.1 % 713-8) BASO % (test code = 0.8 % 706-2) GRAN MAT x10^3(ANC) 4.43 10*3/uL 1.88-7.09 (test code = 0571911894) IMM GRAN x10^3 (test <0.03 0.00-0.06 code = 5965938751) LYMPH x10^3 (test code 1.57 10*3/uL 1.32-3.29 = 731-0) MONO x10^3 (test code 0.42 10*3/uL 0.33-0.92 = 742-7) EOS x10^3 (test code = 0.07 10*3/uL 0.03-0.39 711-2) BASO x10^3 (test code 0.05 10*3/uL 0.01-0.07 = 704-7) Lab Interpretation Abnormal (test code = 65727-6) [facility] (ID NOW RAPID TESTING)2021-06-30 15:21:17 Test Item Value Reference Range Interpretation Comments SARS-CoV-2 Rapid ID NOW Not Detected Not Detected (test code = 20606-9) FREDIS (test code = FREDIS) ID NOW COVID-19 Assay is an isothermal nucleic acid amplification test intended for the qualitative detection of nucleic acid from SARS-CoV-2 viral RNA in nasopharyngeal (NETWORK ADMINISTRATOR) specimens. It is used under Emergency Use Authorization (EUA) by FDA. The limit of detection (LOD) of the assay is 125 Genome Equivalents/mL. A positive result is indicative of the presence of SARS-CoV-2 RNA. ?Clinical correlation with patient history and other diagnostic information is necessary to determine patient infection status. A negative (Not Detected) result does not preclude SARS-CoV-2 infection. In patients with a high suspicion of SARS-CoV-2 infection, negative results should be treated as presumptive negative and a new specimen should be tested with alternative nucleic acid amplification molecular test. Invalid: Please collect a new specimen for repeat patient testing if clinically indicated. Lab Interpretation Normal (test code = 26981-2) [facility]
[2022-04-06 09:39] LABS: Urine Blood Trace-lysed (Negative); Urine Glucose Negative (Negative); Urine Protein Negative (Negative); Urine Specific Gravity 1.025 (1.005-1.030)
[2022-04-06] MEDS ORDERED: FAMOTIDINE 20 MG/2 ML VIAL IV ONE (09:53)
[2022-04-06] MEDS ORDERED: KETOROLAC 30 MG/ML INJ ONE (09:53)
[2022-04-06] MEDS ORDERED: NA CHLORIDE 0.9% 1,000 ML ONE (09:53)
[2022-04-06] MEDS ORDERED: METHYLPREDNISOLONE 125 MG INJ ONE (09:53)
[2022-04-06 09:55] LABS: Absolute Lymphocytes (CBC) 1.6 K/uL (0.7-4.9); Hematocrit 42.7 % (36.0-45.0); Lymphocytes % 22.7 % (15.3-44.8); RBC Red Blood Cell Count 4.68 M/uL (3.86-4.86)
[2022-04-06 10:02] LABS: Protime INR 0.99
--- NOTE | 2022-04-06 10:11 | RAD REPORT ---
EXAM DESCRIPTION: RAD - Chest Single View - 04/06/2022 9:47 am CLINICAL HISTORY: CONGESTIONswelling, edema COMPARISON: November 2013 TECHNIQUE: AP portable chest image was obtained 04/06/2022 9:47 am . FINDINGS: No focal mass or infiltrate. No pulmonary edema pattern identified. Heart and vasculature are normal. No measurable pleural effusion and no pneumothorax. No acute bony abnormality seen. No ac [place] aortic findings suspected. IMPRESSION: No acute cardiopulmonary process.
[2022-04-06 10:22] LABS: ALT/SGPT 17 U/L (12-78); AST/SGOT 10 U/L (15-37); Albumin 3.7 g/dL (3.4-5.0); Alkaline Phosphatase 69 U/L (45-117); Amylase 49 U/L (25-115); BUN Blood Urea Nitrogen 17 mg/dL (7-18); Bicarbonate 26 mmol/L (21-32); Bilirubin Total 0.4 mg/dL (0.2-1.0); Glomerular Filtration Rate 84 ml/min (=/>90); Glucose Level 92 mg/dL (74-106); Lipase 66 U/L (73-393); Magnesium 2.1 mg/dL (1.8-2.4); Potassium 3.8 mmol/L (3.5-5.1); Protein, Total 7.2 g/dL (6.4-8.2); Sodium Level 139 mmol/L (136-145)
[2022-04-06 10:41] LABS: Bilirubin Direct < 0.1 mg/dL (0-0.2); CKMB Creatine Kinase MB < 1.0 ng/mL (1.0-3.6)
--- NOTE | 2022-04-06 11:20 | RAD REPORT ---
EXAM DESCRIPTION: CT - Head Brain Wo Cont - 04/06/2022 11:00 am CLINICAL HISTORY: Delirium, right-sided facial swelling, blurred vision COMPARISON: No comparisons TECHNIQUE: Axial 5 mm thick images of the head were obtained without IV contrast. All CT scans are performed using dose optimization technique as appropriate and may include automated exposure control or mA/KV adjustment according to patient size. FINDINGS: No intracranial hemorrhage, mass, edema or shift of mid-line structures. No acute infarcti on changes seen. No abnormal extra-axial fluid collections. Ventricles are normal. Mastoid air cells and visualized portions of the paranasal sinuses are clear. No acute bony findings. IMPRESSION: Negative non-contrast CT head examination.
--- NOTE | 2022-04-06 11:24 | RAD REPORT ---
EXAM DESCRIPTION: CT - Maxillofacial W/Cont - 04/06/2022 11:01 am CLINICAL HISTORY: Right-sided facial swelling, pain COMPARISON: None. TECHNIQUE: Axial 2 millimeter thick images of the facial bones were obtained following nonionic IV c ontrast administration with sagittal and coronal reconstruction imaging. All CT scans are performed using dose optimization technique as appropriate and may include automated exposure control or mA/KV adjustment according to patient size. FINDINGS: Limited intracranial portion the examination was unremarkable. No globe or orbital content abnormality seen. Mastoid air cells are clear. Trace mucosal thickening in the maxillary sinuses. No acute paranasal sinus finding. No pharyngeal mucosal mass or asymmetry. No tonsillar or tongue base abnormality seen. Soft palate is unremarkable. Epiglottis and vocal cords also without suspicious finding. The parotid, submandibular and thyroid gland tissues show no mass, edema or other significant finding . The thyroid gland was not fully imaged on this facial CT study. No vascular abnormality. No asymmetric or abnormally enhancing tissues identifiable. Right-sided facial soft tissue show no abnormal edema or soft tissue asymmetry. No air or foreign bod y in the soft tissues. No acute or destructive bone process identifiable. IMPRESSION: Contrast-enhanced CT study of the facial soft tissues shows no identifiable abnormality.
--- NOTE | 2022-04-06 12:49 | ER ---
Nurse's Notes [facility] Name: Xi Beckford Age: 56 yrs Sex: Female : 1965 Arrival Date: 04/06/2022 Time: 08:41 Bed 16 Private MD: Humberto Harley E Diagnosis: Allergy status to unspecified drugs, medicaments and biological substances status Presentation: 04/06 08:44 Chief complaint: Patient states: woke up in middle of night and the right side of her iw face is swollen and her heart is racing and she is having blurred vision and doesn't feel right . started cipro for a UTI and her doctor told her she may be having a reaction to that. Coronavirus screen: At this time, the client does not indicate any symptoms associated with coronavirus-19. Ebola Screen: Patient negative for fever greater than or equal to 101.5 degrees Fahrenheit, and additional compatible Ebola Virus Disease symptoms Patient denies exposure to infectious person. Patient denies travel to an Ebola-affected area in the 21 days before illness onset. No symptoms or risks identified at this time. Onset of symptoms was April 06, 2022. 08:44 Method Of Arrival: Ambulatory iw 08:44 Acuity: BASSAM 3 iw 08:46 Risk Assessment: Do you want to hurt yourself or someone else? Patient reports no iw desire to harm self or others. 08:51 Initial Sepsis Screen: Does the patient meet any 2 criteria? No. Patient's initial ph sepsis screen is negative. Does the patient have a suspected source of infection? No. Patient's initial sepsis screen is negative. 09:59 Onset: The symptoms/episode began/occurred this morning. Anaphylaxis evaluation, no ph signs or symptoms of anaphylaxis were noted. Historical: - Allergies: 08:46 Keflex; iw 08:46 Robaxin; iw - Immunization history:: Adult Immunizations up to date. - Social history:: Patient/guardian denies using alcohol, street drugs, The patient lives with family, Smoking status: Patient reports the use of cigarette tobacco products, smokes one-half pack cigarettes per day. - Family history:: not pertinent. Screenin:50 Abuse screen: Denies threats or abuse. Denies injuries from another. Nutritional ph screening: No deficits noted. Tuberculosis screening: No symptoms or risk factors identified. Fall Risk None identified. Assessment: 09:00 General: Appears in no apparent distress. uncomfortable, Behavior is calm, cooperative, ph appropriate for age. Pain: Complains of pain in right temporal area, right yazidism, right zygomatic area and right cheek Pain radiates to right clavicle and anterior aspect of right upper chest. Neuro: Level of Consciousness is awake, alert, obeys commands, Oriented to person, place, time, situation, Reports headache. 10:02 Cardiovascular: Capillary refill < 3 seconds in bilateral fingers Patient's skin is ph warm and dry. Respiratory: Airway is patent Respiratory effort is even, unlabored, Breath sounds are clear bilaterally. GI: No signs and/or symptoms were reported involving the gastrointestinal system. EENT: swelling and open wound noted to R lower gum area, pt reports having molars pulled many years ago. Derm: Skin is intact, Skin is pink, warm \T\ dry. Musculoskeletal: Circulation, motion, and sensation intact. Range of motion: intact in all extremities. 11:00 Reassessment: Patient appears in no apparent distress at this time. Patient and/or ph family updated on plan of care and expected duration. Pain level reassessed. Patient is alert, oriented x 3, equal unlabored respirations, skin warm/dry/pink. 12:00 Reassessment: Patient appears in no apparent distress at this time. Patient and/or ph family updated on plan of care and expected duration. Pain level reassessed. Patient is alert, oriented x 3, equal unlabored respirations, skin warm/dry/pink. 13:07 Reassessment: Patient appears in no apparent distress at this time. Patient and/or ph family updated on plan of care and expected duration. Pain level reassessed. Patient is alert, oriented x 3, equal unlabored respirations, skin warm/dry/pink. Patient states feeling better. Patient states symptoms have improved. Vital Signs: 08:44 BP 167 / 93; Pulse 80; Resp 16; Temp 97.6; Pulse Ox 100% on R/A; iw 09:20 BP 141 / 79; Pulse 77; Resp 18; Pulse Ox 96% on R/A; ph 10:09 BP 149 / 77; Pulse 65; Resp 18; Pulse Ox 99% on R/A; ph 11:00 BP 139 / 78; Pulse 69; Resp 18; Pulse Ox 99% on R/A; ph 12:00 BP 151 / 78; Pulse 76; Resp 18; Pulse Ox 98% on R/A; ph 13:00 BP 146 / 86; Pulse 72; Resp 18; Temp 98.0; Pulse Ox 99% on R/A; ph ED Course: 08:41 Patient arrived in ED. rg4 08:42 Humberto Harley MD is Private Physician. rg4 08:46 Triage completed. iw 08:46 Arm band placed on. iw 08:49 Arpita Lee, ANN MARIE is Primary Nurse. ph 08:50 Patient has correct armband on for positive identification. Bed in low position. Call ph light in reach. Side rails up X 1. Pulse ox on. NIBP on. 08:57 Loni Hamm MD is Attending Physician. ma2 09:40 Inserted saline lock: 20 gauge in left forearm, using aseptic technique. Blood mb7 collected. 09:43 Amylase, Serum Sent. mb7 09:43 Basic Metabolic Panel Sent. mb7 09:43 CBC with Diff Sent. mb7 09:43 Ckmb Sent. mb7 09:43 Hepatic Function Sent. mb7 09:43 Lipase Sent. mb7 09:43 Magnesium Sent. mb7 09:43 Protime (+inr) Sent. mb7 09:43 Ptt, Activated Sent. mb7 09:49 XRAY Chest (1 view) In Process Unspecified. EDMS 11:02 CT Head Brain wo Cont In Process Unspecified. EDMS 11:03 CT Maxillofacial W/cont In Process Unspecified. EDMS 13:07 No provider procedures requiring assistance completed. IV discontinued, intact, ph bleeding controlled, No redness/swelling at site. Pressure dressing applied. Administered Medications: :58 Drug: NS 0.9% 1000 ml Route: IV; Rate: 1 bolus; Site: left wrist; ph 12:00 Follow up: Response: No adverse reaction; IV Status: Completed infusion; IV Intake: ph 1000ml 09:58 Drug: Pepcid (famotidine) 10 mg Route: IVP; Site: left wrist; ph 13:14 Follow up: Response: No adverse reaction ph 09:58 Drug: MethylPrednisoLONE 125 mg Route: IVP; Site: left wrist; ph 11:00 Follow up: Response: No adverse reaction; Marked relief of symptoms ph 09:58 Drug: Ketorolac 30 mg Route: IVP; Site: left wrist; ph 10:30 Follow up: Response: No adverse reaction; Pain is decreased ph Medication: 09:20 VIS not applicable for this client. ph Intake: 12:00 IV: 1000ml; Total: 1000ml. ph Outcome: 12:48 Discharge ordered by . justa 13:07 Discharged to home ambulatory, with family. ph 13:07 Condition: good 13:07 Discharge instructions given to patient, Instructed on discharge instructions, follow up and referral plans. medication usage, Demonstrated understanding of instructions, follow-up care, medications, Prescriptions given X 3. 13:15 Patient left the ED. ph Signatures: Dispatcher [employer] EDJennifer Gupta RN RN iw Arpita eLe RN RN ph Myrtle Barba 4 Loni Hamm MD MD ma2 Josephine Hyman mb7 Corrections: (The following items were deleted from the chart) 08:54 08:44 Chief complaint: Patient states: woke up in middle of night and the right side of iw her face is swollen and her heart is racing and she is having blurred vision and doesn't feel right iw 08:54 08:46 Chief complaint: started cipro for UTI a couple days ago iw iw
--- NOTE | 2022-04-06 12:49 | EDPHYS ---
Physician Documentation [facility] Name: Xi Beckford Age: 56 yrs Sex: Female : 1965 Arrival Date: 04/06/2022 Time: 08:41 Bed 16 Private MD: Humberto Harley E ED Physician Loni Hamm HPI: 04/06 09:27 This 56 yrs old Female presents to ER via Ambulatory with complaints of Allergic ma2 Reaction. 09:27 Onset: The symptoms/episode began/occurred gradually, 1 day(s) ago. Associated signs ma2 and symptoms: Pertinent negatives: chest pain, headache, Light headed rash, Syncope vomiting. Severity of symptoms: At their worst the symptoms were moderate in the emergency department the symptoms are unchanged. The patient has not experienced similar symptoms in the past. 56-year-old female was started on Cipro yesterday for UTI, presents with right facial pain swelling, patient also states she has mild headache, she called her PCP and they told her to go to ER for possible Cipro allergic reaction,. Historical: - Allergies: 08:46 Keflex; iw 08:46 Robaxin; iw - Immunization history:: Adult Immunizations up to date. - Social history:: Patient/guardian denies using alcohol, street drugs, The patient lives with family, Smoking status: Patient reports the use of cigarette tobacco products, smokes one-half pack cigarettes per day. - Family history:: not pertinent. ROS: 09:27 Constitutional: Negative for fever, chills, and weight loss. ma2 09:27 All other systems are negative. Exam: 09:27 Constitutional: This is a well developed, well nourished patient who is awake, alert, ma2 and in no acute distress. Head/Face: Normocephalic, atraumatic. Eyes: Pupils equal round and reactive to light, extra-ocular motions intact. Lids and lashes normal. Conjunctiva and sclera are non-icteric and not injected. Cornea within normal limits. Periorbital areas with no swelling, redness, or edema. ENT: Nares patent. No nasal discharge, no septal abnormalities noted. Tympanic membranes are normal and external auditory canals are clear. Oropharynx with no redness, swelling, or masses, exudates, or evidence of obstruction, uvula midline. Mucous membranes moist. Neck: Trachea midline, no thyromegaly or masses palpated, and no cervical lymphadenopathy. Supple, full range of motion without nuchal rigidity, or vertebral point tenderness. No Meningismus. Chest/axilla: Normal chest wall appearance and motion. Nontender with no deformity. No lesions are appreciated. Cardiovascular: Regular rate and rhythm with a normal S1 and S2. No gallops, murmurs, or rubs. Normal PMI, no JVD. No pulse deficits. Respiratory: Lungs have equal breath sounds bilaterally, clear to auscultation and percussion. No rales, rhonchi or wheezes noted. No increased work of breathing, no retractions or nasal flaring. Abdomen/GI: Soft, non-tender, with normal bowel sounds. No distension or tympany. No guarding or rebound. No evidence of tenderness throughout. Back: No spinal tenderness. No costovertebral tenderness. Full range of motion. Skin: Warm, dry with normal turgor. Normal color with no rashes, no lesions, and no evidence of cellulitis. MS/ Extremity: Pulses equal, no cyanosis. Neurovascular intact. Full, normal range of motion. Neuro: Awake and alert, GCS 15, oriented to person, place, time, and situation. Cranial nerves II-XII grossly intact. Motor strength 5/5 in all extremities. Sensory grossly intact. Cerebellar exam normal. Normal gait. Vital Signs: 08:44 BP 167 / 93; Pulse 80; Resp 16; Temp 97.6; Pulse Ox 100% on R/A; iw 09:20 BP 141 / 79; Pulse 77; Resp 18; Pulse Ox 96% on R/A; ph 10:09 BP 149 / 77; Pulse 65; Resp 18; Pulse Ox 99% on R/A; ph 11:00 BP 139 / 78; Pulse 69; Resp 18; Pulse Ox 99% on R/A; ph 12:00 BP 151 / 78; Pulse 76; Resp 18; Pulse Ox 98% on R/A; ph 13:00 BP 146 / 86; Pulse 72; Resp 18; Temp 98.0; Pulse Ox 99% on R/A; ph MDM: 09:19 Patient medically screened. ma2 09:27 Differential diagnosis: Arrhythmias non IgE mediated drug reaction urticaria, Vasovagal ma2 Reactions. 12:47 Data reviewed: vital signs, nurses notes. Counseling: I had a detailed discussion with justa the patient and/or guardian regarding: the historical points, exam findings, and any diagnostic results supporting the discharge/admit diagnosis, the presence of at least one elevated blood pressure reading (>120/80) during this emergency department visit, the need for outpatient follow up. Response to treatment: the patient's symptoms have markedly improved after treatment. 04/06 09:18 Order name: Amylase, Serum; Complete Time: 11:43 ma2 04/06 09:18 Order name: Basic Metabolic Panel; Complete Time: 11:43 ma2 04/06 09:18 Order name: CBC with Diff; Complete Time: 11:43 ma2 04/06 09:18 Order name: Ckmb; Complete Time: 11:43 ma2 04/06 09:18 Order name: Hepatic Function; Complete Time: 11:43 ma2 04/06 09:18 Order name: Lipase; Complete Time: 11:43 ma2 04/06 09:18 Order name: Magnesium; Complete Time: 11:43 ma2 04/06 09:18 Order name: Protime (+inr); Complete Time: 11:43 ma2 04/06 09:18 Order name: Ptt, Activated; Complete Time: 11:43 ma2 04/06 09:18 Order name: CT Head Brain wo Cont; Complete Time: 11:43 ma2 04/06 09:18 Order name: XRAY Chest (1 view); Complete Time: 11:43 ma2 04/06 09:21 Order name: CT Maxillofacial W/cont; Complete Time: 11:43 ma2 04/06 09:40 Order name: Urine Dipstick-Ancillary; Complete Time: 11:43 EDMS 04/06 09:18 Order name: IV Saline Lock; Complete Time: 09:41 ma2 04/06 09:18 Order name: Labs collected and sent; Complete Time: 09:41 ma2 04/06 09:18 Order name: O2 Per Protocol; Complete Time: 09:21 ma2 04/06 09:18 Order name: O2 Sat Monitoring; Complete Time: 09:21 ma2 04/06 09:18 Order name: Stroke Swallow Screen; Complete Time: 09:29 ma2 04/06 09:18 Order name: Urine Dipstick-Ancillary (obtain specimen); Complete Time: 09:44 ma2 Administered Medications: 09:58 Drug: NS 0.9% 1000 ml Route: IV; Rate: 1 bolus; Site: left wrist; ph 12:00 Follow up: Response: No adverse reaction; IV Status: Completed infusion; IV Intake: ph 1000ml 09:58 Drug: Pepcid (famotidine) 10 mg Route: IVP; Site: left wrist; ph 13:14 Follow up: Response: No adverse reaction ph 09:58 Drug: MethylPrednisoLONE 125 mg Route: IVP; Site: left wrist; ph 11:00 Follow up: Response: No adverse reaction; Marked relief of symptoms ph 09:58 Drug: Ketorolac 30 mg Route: IVP; Site: left wrist; ph 10:30 Follow up: Response: No adverse reaction; Pain is decreased ph Disposition Summary: 04/06/22 12:48 Discharge Ordered Location: Home ma2 Condition: Stable ma2 Diagnosis - Allergy status to unspecified drugs, medicaments and biological substances status ma2 Followup: ma2 - With: Private Physician - When: Tomorrow - Reason: Continuance of care Discharge Instructions: - Discharge Summary Sheet ma2 - Drug Allergy, [id number] ma2 Forms: - Medication Reconciliation Form ma2 - Thank You Letter ma2 - Antibiotic Education ma2 - Prescription Opioid Use ma2 Prescriptions: - Benadryl 25 mg Oral Capsule - take 1 capsule by ORAL route every 6 hours As needed; 30 tablet; Refills: 0, ma2 Product Selection Permitted - Medrol (Jay) 4 mg Oral Tablets, Dose Pack - take 1 tablet by ORAL route as directed - follow package instructions; 1 ma2 packet; Refills: 0, Product Selection Permitted - Pepcid 20 mg Oral Tablet - take 1 tablet by ORAL route once daily; 20 tablet; Refills: 0, Product ma2 Selection Permitted Signatures: Dispatcher [employer] Jennifer Laura RN RN Arpita Lee RN RN Loni Hamm MD MD ma2
[2022-04-06 13:35] VITALS: BP 146/86; TEMP 98; O2SAT 99
== END 2022-04-06 13:15 | disposition home or self-care (01) ==
LOC: ER 08:39
DX: R51.9 Headache, unspecified (principal); R22.9 Localized swelling, mass and lump, unspecified; Z88.1 Allergy status to other antibiotic agents; Z88.6 Allergy status to analgesic agent; F17.210 Nicotine dependence, cigarettes, uncomplicated
CPT/HCPCS: 36415; 70450; 70487; 71045; 80048; 80076; 81003; 82150; 82553; 83690; 83735; 85025; 85610; 85730; 96361; 96374; 96375; 99284; J2930; J3490; J7030; Q9967